=== PATIENT | male | born 1940 | race Caucasian/White ===

== ENCOUNTER 2017-02-08 14:30 | Inpatient (IN) | payer MEDICARE ==
[2017-02-08] VITALS (12 sets, daily range): BP systolic 166–205; BP diastolic 93–124; PULSE 93–108; RESP 8–19; TEMP 97.7; O2SAT 92–98
[~2017-02-08] VITALS: Ht 170.2 cm; Wt 79.0 kg
[2017-02-08] MEDS ORDERED: ROSU1TAB10 PO (14:47)
[2017-02-08] MEDS ORDERED: VERA1TAB10 PO (14:47)
[2017-02-08] MEDS ORDERED: RAMI5CAP PO (14:47)
[2017-02-08] MEDS ORDERED: ALLO300T2 PO (14:47)
[2017-02-08] MEDS ORDERED: SODIUM CHLOR 0.9% 1000 ML INJ 1,000 ML IV SCH ×2 (15:10→17:31)
[2017-02-08] MEDS ORDERED: SODIUM CHLORIDE 0.9% FLUSH 10 ML FLUSH IV FLUSH PRN ×2 (15:15→19:15)
[2017-02-08] MEDS ORDERED: ONDANSETRON HCL 4 MG/2 ML VIAL IVP ONE (15:15)
[2017-02-08] MEDS ORDERED: MORPHINE SULFATE 4 MG/ML INJ IV PUSH ONE (15:15)
--- NOTE | 2017-02-08 15:18 | PD ---
HPI . Abdominal pain Chief Complaint: Abdominal Pain Time Seen by Provider: 15:10 Travel History International Travel<30 days: No Contact w/Intl Traveler<30days: No Traveled to known affect area: No History of Present Illness HPI Patient presents with abdominal pain and bloating started last night. He describes crampy abdominal pain which he rates as 9/10. He states that he has had this on several previous occasions and that it is due to a small bowel obstruction. He reports abdominal bloating. He is nauseous but has not vomited. He has had a previous fundoplication and states that he cannot vomit. He reports that his last bowel movement was last night and his last flatus was last night. His reports that his previous bowel obstructions have been treated poorly with bowel rest and IV fluids. She states that they have never placed an NG tube. All of his previous treatments for SBO have been at an outside hospital. PFSH Past Medical History Cardiac Catheterization: Yes Cardiovascular Problems: Yes (CAD, HTN, CHOLESTEROL) High Cholesterol: Yes Gout: Yes Hypertension: Yes Respiratory: Yes (CHRONIC ATELECTASIS) Tetanus Vaccination: Unknown Influenza Vaccination: Yes Past Surgical History Eye Surgery: Yes (CATARACT, VITRIOUS DETATCHMENT) Tonsillectomy: Yes Other Surgery: Yes (GASTROPLASTY,HERNIA REMOVAL, VASECTOMY, L. ROTATOR SX) Social History Alcohol Use: Yes (SOCIALLY) Tobacco Use: No Substance Use: No Allergies-Medications (Allergen,Severity, Reaction): Coded Allergies: Adhesives (Verified Allergy, Intermediate, BRIGHT RED SKIN, 02/08/17) Iodine (Verified Allergy, Intermediate, RED/DRY SKIN ALL OVER, 02/08/17) Lidocaine (Verified Allergy, Intermediate, VASOVAGAL RESPONSE, 02/08/17) Reported Meds & Prescriptions Reported Meds & Active Scripts Active Reported Rosuvastatin (Rosuvastatin Calcium) 40 Mg Tab 40 Mg PO HS Allopurinol 300 Mg Tab 300 Mg PO HS Ramipril 5 Mg Cap 5 Mg PO HS Verapamil ER (Verapamil HCl) 180 Mg Tab 180 Mg PO HS Review of Systems Except as stated in HPI: all other systems reviewed are Neg General / Constitutional: No: Fever, Chills Gastrointestinal: Positive: Nausea, Abdominal Pain, No: Vomiting, Diarrhea Physical Exam Narrative GENERAL: Patient appears pretty uncomfortable. SKIN: Warm and dry. HEAD: Atraumatic. Normocephalic. EYES: Pupils equal and round. Extraocular movements are intact. ENT: No nasal bleeding or discharge. Mucous membranes pink and moist. NECK: Trachea midline. Neck is supple. CARDIOVASCULAR: Regular rate and rhythm. Heart sounds are normal. RESPIRATORY: No accessory muscle use. Lungs are clear with good air movement throughout. GASTROINTESTINAL: Abdomen is distended and tense. Bowel sounds are present. He is diffusely tender. MUSCULOSKELETAL: No obvious deformities. No edema. NEUROLOGICAL: Awake and alert. No obvious cranial nerve deficits. Motor grossly within normal limits. Normal speech. PSYCHIATRIC: Appropriate mood and affect; insight and judgment normal. Data Data Last Documented VS Vital Signs Date Time Temp Pulse Resp B/P Pulse Ox O2 Delivery O2 Flow Rate FiO2 02/08/17 15:15 16 97 Room Air 02/08/17 14:38 97.7 108 194/124 Orders Complete Blood Count With Diff (02/08/17 15:10) Comprehensive Metabolic Panel (02/08/17 15:10) Lipase (02/08/17 15:10) Lactic Acid (02/08/17 15:10) Urinalysis - C+S If Indicated (02/08/17 15:10) Iv Access Insert/Monitor (02/08/17 15:10) Ecg Monitoring (02/08/17 15:10) Oximetry (02/08/17 15:10) Morphine Inj (Morphine Inj) (02/08/17 15:15) Ondansetron Inj (Zofran Inj) (02/08/17 15:15) Sodium Chlor 0.9% 1000 Ml Inj (Ns 1000 M (02/08/17 15:10) Sodium Chloride 0.9% Flush (Ns Flush) (02/08/17 15:15) Electrocardiogram (02/08/17 15:10) Ct Abd/Pel W/O Iv Contrast (02/08/17 15:10) MDM Medical Decision Making Medical Screen Exam Complete: Yes Emergency Medical Condition: Yes Medical Record Reviewed: Yes Differential Diagnosis Differential diagnosis of abdominal pain includes but is not limited to gastritis, pancreatitis, hepatitis, gastroenteritis, gallbladder disease, constipation, urinary retention, UTI, peptic ulcer disease, diverticulitis or appendicitis Narrative Course Patient presents complaining with abdominal pain and bloating. He states that his symptoms are similar to previous symptoms that he has had associated with SBO. I have ordered IV fluids and IV analgesics and anti-emetics. Care signed out to the oncoming provider at 16:00. Diagnosis Primary Impression: abdominal pain Sarah Morales MD Feb 08, 2017 15:18
[2017-02-08 15:43] LABS: BASOPHIL # 0.6 TH/MM3 (0-0.2); BASOPHIL % 3.6 % (0.0-2.0); HEMATOCRIT 53.6 % (39.0-51.0); LYMPH % 4.9 % (9.0-44.0); LYMPHOCYTE # 0.8 TH/MM3 (1.0-4.8); MEAN CELL VOLUME 96.5 FL (80.0-100.0); MEAN CORPUSCULAR HEMOGLOBIN 31.8 PG (27.0-34.0); MONO % 2.3 % (0.0-8.0); NEUT % 89.2 % (16.0-70.0); PLATELET COUNT 158 TH/MM3 (150-450); RED BLOOD COUNT 5.56 MIL/MM3 (4.50-5.90); RED CELL DISTRIBUTION WIDTH 13.5 % (11.6-17.2); WHITE BLOOD COUNT 15.8 TH/MM3 (4.0-11.0)
[2017-02-08 15:52] LABS: CHLORIDE 106 MEQ/L (98-107); POTASSIUM 3.9 MEQ/L (3.5-5.1); SODIUM (NA) 142 MEQ/L (136-145)
[2017-02-08 15:56] LABS: ANION GAP 13 MEQ/L (5-15); BICARBONATE 22.7 MEQ/L (21.0-32.0); BLOOD UREA NITROGEN 11 MG/DL (7-18)
[2017-02-08 15:59] LABS: ALT (GPT) 74 U/L (12-78); AST (GOT) 25 U/L (15-37); GLOMERULAR FILTRATION RATE 65 ML/MIN (>89)
[2017-02-08 16:00] LABS: HEMO FLAGS AUTO DIFF
[2017-02-08 16:01] LABS: TOTAL BILIRUBIN ADULT 1.9 MG/DL (0.2-1.0)
[2017-02-08 16:02] LABS: ALKALINE PHOSPHATASE 66 U/L (45-117)
[2017-02-08 16:17] LABS: SCAN/DIFF AUTO DIFF CONFIRMED
--- NOTE | 2017-02-08 16:29 | RADHPO ---
EXAM DATE/TIME: 02/08/2017 16:17 [facility] COMPARISON: No previous studies available for comparison. INDICATIONS : Shortness of breath. MEDICAL HISTORY : None. SURGICAL HISTORY : None. ENCOUNTER: Initial ACUITY: 1 day PAIN SCORE: 0/10 LOCATION: Bilateral chest FINDINGS: There is moderate gaseous distention throughout the stomach. There is cardiomegaly with mild interst itial edema. There is no alveolar consolidation, pleural effusion or pneumothorax. CONCLUSION: 1. Moderate gaseous distention. 2. Cardiomegaly with mild interstitial edema. Emery Zavala MD FACR on February 08, 2017 at 16:24 Board Certified Radiologist. This report was verified electronically.
--- NOTE | 2017-02-08 16:41 | RADHPO ---
EXAM DATE/TIME: 02/08/2017 15:41 [facility] COMPARISON: CHEST SINGLE AP, February 08, 2017, 16:17. INDICATIONS : Abdominal pain with nausea and constipation. ORAL CONTRAST: No oral contrast ingested. RADIATION DOSE: 15.34 CTDIvol (mGy) MEDICAL HISTORY : Hernia. Hypertension. SURGICAL HISTORY : Gastroplasty, hernia removal. ENCOUNTER: Initial ACUITY: 1 day PAIN SCALE: 5/10 LOCATION: abdomen TECHNIQUE: Volumetric scanning of the abdomen and pelvis was performed. Using automated exposure control and ad justment of the mA and/or kV according to patient size, radiation dose was kept as low as reasonably achievable to obtain optimal diagnostic quality images. FINDINGS: There is an abnormal bowel gas pattern. The stomach is markedly distended with only a small air-flui d level. There is a moderate size hiatus hernia with air-fluid level. In the region of the duodenal bulb or 2nd portion of the duodenum, there is a narrowing of the lumen to less than 5 mm, this is be st seen on image #35. The duodenum distal to these narrowing is also markedly dilated as are proxima l and mid loops of small bowel. Small bowel loops are dilated up to 4.5 cm and there are some air-fl uid levels seen within the small bowel. The distal small bowel, however, is not distended. The no m ass or induration seen at the transition zone between dilated and nondilated small bowel, which is ap proximately at image #55 in the right lower quadrant. The liver, gallbladder, spleen, kidneys, pancreas, aorta, bladder, and in the region are unremarkable . No evidence of free fluid. No evidence of free intraperitoneal gas. The visualized lower lungs a re clear. Wide windows for bony detail demonstrate moderate degenerative changes in the posterior el ements of the lumbar spine. CONCLUSION: Abnormal appearance to the stomach and proximal two thirds of the small bowel with marked gaseous dis tention. Possible stricture in the proximal duodenum and a possible transition zone in the right low er quadrant in the distal small bowel. There is also a moderate size hiatus hernia with air-fluid le herson. There is no mass seen at the transition zone and no evidence of free fluid or free intraperiton eal gas. The patient may benefit from a NG tube. Vahid Serrano MD on February 08, 2017 at 16:32 Board Certified Radiologist. This report was verified electronically.
--- NOTE | 2017-02-08 17:29 | RADHPO ---
EXAM DATE/TIME: 02/08/2017 17:13 [facility] COMPARISON: CT ABDOMEN & PELVIS W/O CONTRAST, February 08, 2017, 15:41. CHEST SINGLE AP, February 08, 2017, 16:17. INDICATIONS : Post NG tube placement. MEDICAL HISTORY : None. SURGICAL HISTORY : None. ENCOUNTER: Subsequent ACUITY: 1 day PAIN SCORE: 5/10 LOCATION: Bilateral lower chest FINDINGS: Interval placement of a gastric tube. The tip is seen below the level of the diaphragm in the left e pigastric region suggesting that it does cross into the stomach. However, there is a moderate-sized hiatus hernia and cannot exclude that the tube is coiled in the hiatus hernia. The side-port of the tube is not discernible. CONCLUSION: A gastric tube tip is either near the fundus of the stomach or in the hiatus hernia. Side-port locat ion cannot be determined on this film. Vahid Serrano MD on February 08, 2017 at 17:24 Board Certified Radiologist. This report was verified electronically.
[2017-02-08] MEDS ORDERED: PANTOPRAZOLE SODIUM 40 MG VIAL IV PUSH ONE (17:45)
[2017-02-08] MEDS ORDERED: DIATRIZOATE MEGLUM/DIATRIZOATE SOD 120 ML BTL (for RAD DIAG) NG ONE (17:55)
--- NOTE | 2017-02-08 18:13 | PD ---
Physical Exam Narrative The patient was initially evaluated by the previous provider and sent out to me at the beginning of my shift pending labs, imaging studies, and disposition. See her note for further details. Briefly this is a 76-year-old male who is from [place], here on vacation for 2 months, history of Chandler fundoplication 3 years ago with 3 episodes of subsequent SBO, here for evaluation of similar symptoms to prior SBO. Patient reports abdominal distention/discomfort, feeling nauseous, burping. Prior to this he had loose bowel movements and a lot of gas. States that he has not had a bowel movement since yesterday evening when his symptoms started. He reports that he has had 6 episodes of SBO since his Chandler fundoplication, and each time he was admitted. Symptoms resolved in the past with bowel alone. On physical exam the patient's abdomen is distended. There is mild diffuse tenderness. No peritoneal signs. He is resting comfortably. Initial vital signs show heart rate 108, blood pressure 194/124, pulse ox 94% on room air, oral temp of 97.7F. The patient is not displaying any signs or symptoms of hypertensive crisis. CBC shows WBC 15.8, hemoglobin 17.7, hematocrit 53.6, platelets 158, neutrophils 89.2%. CMP is essentially unremarkable. Lipase is 512. Lipase is 2.1. CT abdomen pelvis: CONCLUSION: Abnormal appearance to the stomach and proximal two thirds of the small bowel with marked gaseous distention. Possible stricture in the proximal duodenum and a possible transition zone in the right lower quadrant in the distal small bowel. There is also a moderate size hiatus hernia with air-fluid level. There is no mass seen at the transition zone and no evidence of free fluid or free intraperitoneal gas. The patient may benefit from a NG tube. NG tube was placed carefully by me and placed to low intermittent suction. Shortly after the NG tube was placed, the patient experienced moderate relief of abdominal distention/discomfort. Chest x-ray: Cardiomegaly with mild interstitial edema. Gaseous distention. Repeat chest x-ray after NG tube placement shows probable NG tube tip in stomach. KUB with Gastrografin was ordered subsequently to confirm NG tube placement. Abdominal x-ray with Gastrografin: CONCLUSION: Gastrografin obscures the location of the NG tube. Given the pattern of the Gastrografin I suspect the NG tube is coiled within the lower thoracic esophagus or hiatal hernia. NG tube placed to low intermittent suction with only a small amount of stomach contents aspirated. Patient had significant clinical improvement after NG tube placement with significant improvement in abdominal distention as well as discomfort. Call was placed to on-call Dr. surgeon Dr. Aparicio, however his call service tells me that he is in surgery and is unable to be reached at this time. Clinically the patient looks very well. His abdomen is nontender, without peritoneal signs. Case discussed with hospitalist Dr. Edwards. The patient will be transferred to the main hospital for admission for further treatment and evaluation, surgical, and likely GI consultation. Data Data Last Documented VS Vital Signs Date Time Temp Pulse Resp B/P Pulse Ox O2 Delivery O2 Flow Rate FiO2 02/08/17 19:03 97 18 166/93 92 Room Air 02/08/17 14:38 97.7 Orders Complete Blood Count With Diff (02/08/17 15:10) Comprehensive Metabolic Panel (02/08/17 15:10) Lipase (02/08/17 15:10) Lactic Acid (02/08/17 15:10) Urinalysis - C+S If Indicated (02/08/17 15:10) Iv Access Insert/Monitor (02/08/17 15:10) Ecg Monitoring (02/08/17 15:10) Oximetry (02/08/17 15:10) Morphine Inj (Morphine Inj) (02/08/17 15:15) Ondansetron Inj (Zofran Inj) (02/08/17 15:15) Sodium Chlor 0.9% 1000 Ml Inj (Ns 1000 M (02/08/17 15:10) Sodium Chloride 0.9% Flush (Ns Flush) (02/08/17 15:15) Electrocardiogram (02/08/17 15:10) Ct Abd/Pel W/O Iv Contrast (02/08/17 15:10) Chest, Single Ap (02/08/17 ) Chest, Single Ap (02/08/17 ) Pantoprazole Inj (Protonix Inj) (02/08/17 17:45) Sodium Chlor 0.9% 1000 Ml Inj (Ns 1000 M (02/08/17 17:31) Lactic Acid (02/08/17 17:32) Abdomen, Single View (02/08/17 ) Diatrizoate Liq (Md Nelson Stevens) (02/08/17 17:55) Admit Order (Ed Use Only) (02/08/17 19:08) Consult General Surgery (02/08/17 ) Labs Laboratory Tests Test 02/08/17 02/08/17 15:30 18:00 White Blood Count 15.8 TH/MM3 Red Blood Count 5.56 MIL/MM3 Hemoglobin 17.7 GM/DL Hematocrit 53.6 % Mean Corpuscular Volume 96.5 FL Mean Corpuscular Hemoglobin 31.8 PG Mean Corpuscular Hemoglobin 33.0 % Concent Red Cell Distribution Width 13.5 % Platelet Count 158 TH/MM3 Mean Platelet Volume 8.5 FL Neutrophils (%) (Auto) 89.2 % Lymphocytes (%) (Auto) 4.9 % Monocytes (%) (Auto) 2.3 % Eosinophils (%) (Auto) 0.0 % Basophils (%) (Auto) 3.6 % Neutrophils # (Auto) 14.0 TH/MM3 Lymphocytes # (Auto) 0.8 TH/MM3 Monocytes # (Auto) 0.4 TH/MM3 Eosinophils # (Auto) 0.0 TH/MM3 Basophils # (Auto) 0.6 TH/MM3 CBC Comment AUTO DIFF Differential Comment AUTO DIFF CONFIRMED Sodium Level 142 MEQ/L Potassium Level 3.9 MEQ/L Chloride Level 106 MEQ/L Carbon Dioxide Level 22.7 MEQ/L Anion Gap 13 MEQ/L Blood Urea Nitrogen 11 MG/DL Creatinine 1.10 MG/DL Estimat Glomerular Filtration 65 ML/MIN Rate Random Glucose 154 MG/DL Lactic Acid Level 2.1 mmol/L 1.7 mmol/L Calcium Level 9.9 MG/DL Total Bilirubin 1.9 MG/DL Aspartate Amino Transf 25 U/L (AST/SGOT) Alanine Aminotransferase 74 U/L (ALT/SGPT) Alkaline Phosphatase 66 U/L Total Protein 7.8 GM/DL Albumin 4.2 GM/DL Lipase 512 U/L [facility] Supervised Visit with KENYON: No Procedures Procedure Narrative NG tube placement: Small amount of lubricant was placed on the tip of a 16 Czech Brown sump. NG tube was slowly inserted into the left nostril into the posterior pharynx. Patient then swallowed water, lying passage of NG tube into esophagus. Placement confirmed with aspiration of gastric contents and chest x-ray. NG tube placed to low intermittent suction. Diagnosis Primary Impression: abdominal pain Additional Impressions: Gastric distention SBO (small bowel obstruction) Admitting Information Admitting Physician Requests: Admit Brice Velasquez MD Feb 08, 2017 18:13 Admitting Information Admitting Physician Requests: Admit Brice Velasquez MD Feb 08, 2017 18:13
--- NOTE | 2017-02-08 18:34 | RADHPO ---
EXAM DATE/TIME: 02/08/2017 17:58 [facility] COMPARISON: CHEST SINGLE AP, February 08, 2017, 17:13. INDICATIONS : Confirm NG tube placement. MEDICAL HISTORY : None. SURGICAL HISTORY : None. ENCOUNTER: Subsequent ACUITY: 1 day PAIN SCORE: 5/10 LOCATION: Bilateral abdomen FINDINGS: A single portable supine view of the abdomen shows Gastrografin opacifying the lower thoracic esophag us, hiatal hernia, and fundus of the stomach. This obscures the nasogastric tube. The stomach is part ially gas filled as well. Gas-filled loops of mildly distended large and small bowel are partially se en. CONCLUSION: Gastrografin obscures the location of the NG tube. Given the pattern of the Gastrografin I suspect th e NG tube is coiled within the lower thoracic esophagus or hiatal hernia. Vahid Fraser Jr., MD on February 08, 2017 at 18:30 Board Certified Radiologist. This report was verified electronically.
[2017-02-08] MEDS: SODIUM CHLOR 0.9% 1000 ML INJ 1,000 ML IV SCH (19:05)
[2017-02-08] MEDS ORDERED: METOCLOPRAMIDE HCL 10 MG/2 ML VIAL IV PUSH PRN (19:15)
[2017-02-08] MEDS ORDERED: ONDANSETRON HCL 4 MG/2 ML VIAL IVP PRN (19:15)
[2017-02-08] MEDS ORDERED: MORPHINE SULFATE 4 MG/ML INJ IV PRN ×3 (19:15)
[2017-02-08] MEDS ORDERED: hydrALAZINE HCL 20 MG/ML VIAL IV PRN (19:15)
[2017-02-08] MEDS ORDERED: NALOXONE HCL 0.4 MG/ML AMP IV PRN (19:15)
[2017-02-08 19:21] LABS: BLOOD, URINE TRACE (NEG); GLUCOSE,URINE NEG (NEG); KETONE, URINE 15 mg/dL (NEG); NITRITE,URINE NEG (NEG); PH, URINE 6.5 (5.0-8.5)
[2017-02-08 19:25] LABS: URINE COLOR YELLOW (YELLW/STRAW)
[2017-02-08 19:26] LABS: COMMENT (UR) CULT NOT INDICATED; CULTURE IF INDICATED CULT NOT INDICATED; SQUAMOUS EPITHELIAL CELL URINE 0-5 /hpf (0-5); WBC, URINE 0-2 /hpf (0-5)
[2017-02-08] MEDS: SODIUM CHLORIDE 0.9% FLUSH 10 ML FLUSH IV FLUSH SCH (21:00)
[2017-02-09] VITALS (9 sets, daily range): BP systolic 132–187; BP diastolic 76–95; PULSE 82–106; RESP 18–20; TEMP 96.7–99.3; O2SAT 93–94
[2017-02-09] MEDS: SODIUM CHLOR 0.9% 1000 ML INJ 1,000 ML IV SCH (00:50)
[2017-02-09] MEDS ORDERED: ACETAMINOPHEN 650 MG SUPP RECTAL PRN (02:00)
[2017-02-09] MEDS: ENALAPRILAT 1.25 MG/ML VIAL IV PRN ×2 (02:04→08:56)
[2017-02-09] MEDS ORDERED: ENALAPRILAT 1.25 MG/ML VIAL IV PUSH ONE (04:00)
[2017-02-09] MEDS: PANTOPRAZOLE SODIUM 40 MG VIAL IV PUSH SCH (06:31)
[2017-02-09 06:49] LABS: AUTOMATED NEUTROPHIL # 12.5 TH/MM3 (1.8-7.7); BASOPHIL # 0.1 TH/MM3 (0-0.2); BASOPHIL % 0.5 % (0.0-2.0); EOSINOPHIL % 0.1 % (0.0-4.0); HEMATOCRIT 47.4 % (39.0-51.0); HEMO FLAGS DIFF FINAL; LYMPH % 8.3 % (9.0-44.0); LYMPHOCYTE # 1.2 TH/MM3 (1.0-4.8); MEAN CELL VOLUME 96.6 FL (80.0-100.0); MEAN CORPUSCULAR HGB CONC 34.1 % (32.0-36.0); MONO % 4.6 % (0.0-8.0); NEUT % 86.5 % (16.0-70.0); PLATELET COUNT 154 TH/MM3 (150-450); RED CELL DISTRIBUTION WIDTH 14.1 % (11.6-17.2); WHITE BLOOD COUNT 14.5 TH/MM3 (4.0-11.0)
[2017-02-09 07:07] LABS: BICARBONATE 24.4 MEQ/L (21.0-32.0); POTASSIUM 4.1 MEQ/L (3.5-5.1)
[2017-02-09] MEDS: SODIUM CHLORIDE 0.9% FLUSH 10 ML FLUSH IV FLUSH SCH ×2 (09:00→21:00)
--- NOTE | 2017-02-09 09:00 | HHI.HP ---
[facility]Staff Admission Diagnosis abdominal pain, gastric distention, SBO Diagnoses: (1) SBO (small bowel obstruction) Diagnosis: Principal Chief Complaint: abdominal pain Travel History International Travel<30 Days: No Contact w/Intl Traveler <30 Da: No Traveled to Known Affected Are: No History of Present Illness patient is a 76 y/o male with history of Chandler Fundoplication and small bowel obstruction few years ago presented to ER with abdominal pain. he says that the pain started few days ago. the pain initially started on left flank but gradually shifted to the periumbilical area.the pain is colicky in nature and moderate in intensity. the pain was associated with nausea but with no emesis. he had a small bowel movement yesterday. he denies fever, chills. Review of Systems Constitutional: DENIES: Fever, Weight loss, Chills, Night Sweats Eyes: DENIES: Blurred vision, Diplopia, Vision loss, Double Vision Ears, nose, mouth, throat: DENIES: Tinnitus, Vertigo, Throat pain, Epistaxis Respiratory: DENIES: Apneas, Cough, Snoring, Wheezing, Hemoptysis, Sputum production, Shortness of breath Cardiovascular: DENIES: Chest pain, Palpitations, Syncope, Dyspnea on Exertion , PND, Lower Extremity Edema, Orthopnea, Claudication Gastrointestinal: COMPLAINS OF: Abdominal pain, Nausea, DENIES: Black stools, Bloody stools, Constipation, Diarrhea, Vomiting, Difficulty Swallowing, Anorexia Genitourinary: DENIES: Urinary frequency, Urgency, Hematuria, Dysuria Musculoskeletal: DENIES: Joint pain, Muscle aches, Stiffness, Joint Swelling Integumentary: DENIES: Rash Neurologic: DENIES: Abnormal gait, Headache, Localized weakness, Paresthesias, Seizures, Speech Problems, Tremor, Poor Balance Psychiatric: DENIES: Anxiety, Confusion, Mood changes, Depression, Hallucinations, Agitation, Suicidal Ideation, Homicidal Ideation, Delusions Past Family Social History Past Medical History small bowel obstruction hypertension dyslipidemia gout Past Surgical History Chandler Fundoplication rotator cuff surgery Reported Medications Rosuvastatin (Rosuvastatin Calcium) 40 Mg Tab 40 Mg PO HS Allopurinol 300 Mg Tab 300 Mg PO HS Ramipril 5 Mg Cap 5 Mg PO HS Verapamil ER (Verapamil HCl) 180 Mg Tab 180 Mg PO HS Allergies: Coded Allergies: Adhesives (Verified Allergy, Intermediate, BRIGHT RED SKIN, 02/08/17) Iodine (Verified Allergy, Intermediate, RED/DRY SKIN ALL OVER, 02/08/17) Lidocaine (Verified Allergy, Intermediate, VASOVAGAL RESPONSE, 02/08/17) Active Ordered Medications Current Medications Morphine Sulfate (Morphine Inj) 4 mg ONCE ONCE IV PUSH Last administered on 15:35; Start 02/08/17 at 15:15; Stop 02/08/17 at 15:16; Status DC Ondansetron HCl 4 mg 4 mg ONCE ONCE IVP Last administered on 02/08/17 15:33; Start 02/08/17 at 15:15; Stop 02/08/17 at 15:16; Status DC Sodium Chloride (NS 1000 ml Inj) 1,000 ml @ 1,000 mls/hr Q1H IV Last administered on 02/08/17 15:33; Start 02/08/17 at 15:10; Stop 02/08/17 at 16:09 ; Status DC Sodium Chloride (NS Flush) 2 ml UNSCH PRN IV FLUSH FLUSH AFTER USING IV ACCESS ; Start 02/08/17 at 15:15; Stop 02/09/17 at 01:57; Status DC Pantoprazole Sodium 40 mg 40 mg ONCE ONCE IV PUSH Last administered on 18:22; Start 02/08/17 at 17:45; Stop 02/08/17 at 17:46; Status DC Sodium Chloride (NS 1000 ml Inj) 1,000 ml @ 125 mls/hr Q8H IV Last administered on 02/08/17 18:22; Start 02/08/17 at 17:31; Stop 02/09/17 at 01:30 ; Status DC Diatrizoate Meglum/ Diatrizoate Sod ( Gastroview Liq) 10 ml STK-MED ONCE NG ; Start 02/08/17 at 17:55; Stop 02/08/17 at 18:55; Status DC Enalaprilat (Vasotec Inj) 1.25 mg Q6H PRN IV SBP> OR = 160, DBP> OR = 95 Last administered on 02/09/17 02:04; Start 02/08/17 at 19:15 Hydralazine HCl (Apresoline Inj) 10 mg Q6H PRN IV SBP> OR = 180, DBP> OR = 100 Last administered on 02/08/17 23:43; Start 02/08/17 at 19:15 Pantoprazole Sodium 40 mg 40 mg Q24H IV PUSH Last administered on 02/09/17 06: 31; Start 02/09/17 at 07:00 Sodium Chloride (NS 1000 ml Inj) 1,000 ml @ 60 mls/hr [id number] IV Last administered on 02/09/17 00:50; Start 02/08/17 at 19:05 Sodium Chloride (NS Flush) 2 ml UNSCH PRN IV FLUSH FLUSH AFTER USING IV ACCESS ; Start 02/08/17 at 19:15 Sodium Chloride (NS Flush) 2 ml BID IV FLUSH Last administered on 02/08/17 21: 00; Start 02/08/17 at 21:00 Ondansetron HCl (Zofran Inj) 4 mg Q6H PRN IVP NAUSEA OR VOMITING; Start at 19:15 Metoclopramide HCl (Reglan Inj) 5 mg Q6H PRN IV PUSH NAUSEA OR VOMITING; Start 02/08/17 at 19:15 Morphine Sulfate (Morphine Inj) 1 mg Q3H PRN IV Pain 3-5; if unable to take PO ; Start 02/08/17 at 19:15 Morphine Sulfate (Morphine Inj) 2 mg Q3H PRN IV Pain 6-10;if unable to take PO ; Start 02/08/17 at 19:15 Morphine Sulfate (Morphine Inj) 2 mg Q3H PRN IV BREAKTHROUGH PAIN; Start at 19:15 Naloxone HCl (Narcan Inj) 0.4 mg UNSCH PRN IV SEE LABEL COMMENTS; Start at 19:15 Acetaminophen (Tylenol Supp) 650 mg ONCE PRN RECTAL headache; Start 02/09/17 at 02:00; Stop 02/09/17 at 07:30; Status DC Enalaprilat (Vasotec Inj) 1.25 mg ONCE ONCE IV PUSH Last administered on 02/09 04:23; Start 02/09/17 at 04:00; Stop 02/09/17 at 04:01; Status DC Family History not relevant to this presentation. Social History doesn't smoke. drinks occasionally. Physical Exam Vital Signs Vital Signs Date Time Temp Pulse Resp B/P Pulse Ox O2 Delivery O2 Flow Rate FiO2 02/09/17 08:14 97.3 82 18 152/83 94 02/09/17 06:42 89 153/78 02/09/17 04:48 98.2 93 20 187/95 93 02/09/17 03:00 106 02/09/17 02:00 97.6 93 20 175/94 94 02/08/17 23:47 100 18 198/105 94 Room Air 02/08/17 23:32 102 18 205/116 95 Room Air 02/08/17 23:28 93 18 191/106 93 Room Air 02/08/17 22:38 94 16 181/97 94 Room Air 02/08/17 20:45 105 18 175/96 94 Room Air 02/08/17 19:03 97 18 166/93 92 Room Air 02/08/17 17:40 104 16 193/106 Room Air 02/08/17 17:10 100 16 205/111 97 Room Air 02/08/17 16:40 98 16 199/113 98 Room Air 02/08/17 16:05 16 02/08/17 15:53 204/104 202/103 02/08/17 15:15 16 97 Room Air 02/08/17 14:38 97.7 108 19 194/124 94 Physical Exam GENERAL: This is a well-nourished, well-developed patient, in no apparent distress. SKIN: No rashes, ecchymoses or lesions. Cool and dry. HEAD: Atraumatic. Normocephalic. No temporal or scalp tenderness. EYES: Pupils equal round and reactive. Extraocular motions intact. No scleral icterus. No injection or drainage. ENT: Nose without bleeding, purulent drainage or septal hematoma. Throat without erythema, tonsillar hypertrophy or exudate. Uvula midline. Airway patent. NECK: Trachea midline. No JVD or lymphadenopathy. Supple, nontender, no meningeal signs. CARDIOVASCULAR: Regular rate and rhythm without murmurs, gallops, or rubs. RESPIRATORY: Clear to auscultation. Breath sounds equal bilaterally. No wheezes , rales, or rhonchi. GASTROINTESTINAL: Abdomen soft, non-tender, nondistended. No hepato-splenomegaly , or palpable masses. No guarding. MUSCULOSKELETAL: Extremities without clubbing, cyanosis, or edema. No joint tenderness, effusion, or edema noted. No calf tenderness. Negative Homans sign bilaterally. NEUROLOGICAL: Awake and alert. Cranial nerves II through XII intact. Motor and sensory grossly within normal limits. Five out of 5 muscle strength in all muscle groups. Normal speech. Laboratory Laboratory Tests Test 02/08/17 02/08/17 02/08/17 02/09/17 15:30 18:00 19:15 06:22 White Blood Count 15.8 14.5 Red Blood Count 5.56 4.90 Hemoglobin 17.7 16.2 Hematocrit 53.6 47.4 Mean Corpuscular Volume 96.5 96.6 Mean Corpuscular Hemoglobin 31.8 33.0 Mean Corpuscular Hemoglobin 33.0 34.1 Concent Red Cell Distribution Width 13.5 14.1 Platelet Count 158 154 Mean Platelet Volume 8.5 9.1 Neutrophils (%) (Auto) 89.2 86.5 Lymphocytes (%) (Auto) 4.9 8.3 Monocytes (%) (Auto) 2.3 4.6 Eosinophils (%) (Auto) 0.0 0.1 Basophils (%) (Auto) 3.6 0.5 Neutrophils # (Auto) 14.0 12.5 Lymphocytes # (Auto) 0.8 1.2 Monocytes # (Auto) 0.4 0.7 Eosinophils # (Auto) 0.0 0.0 Basophils # (Auto) 0.6 0.1 CBC Comment AUTO DIFF DIFF FINAL Differential Comment AUTO DIFF CONFIRMED Sodium Level 142 140 Potassium Level 3.9 4.1 Chloride Level 106 107 Carbon Dioxide Level 22.7 24.4 Anion Gap 13 9 Blood Urea Nitrogen 11 9 Creatinine 1.10 0.90 Estimat Glomerular Filtration 65 82 Rate Random Glucose 154 98 Lactic Acid Level 2.1 1.7 Calcium Level 9.9 8.9 Total Bilirubin 1.9 Aspartate Amino Transf 25 (AST/SGOT) Alanine Aminotransferase 74 (ALT/SGPT) Alkaline Phosphatase 66 Total Protein 7.8 Albumin 4.2 Lipase 512 147 Urine Color YELLOW Urine Turbidity CLEAR Urine pH 6.5 Urine Specific [place] 1.015 Urine Protein 30 Urine Glucose (UA) NEG Urine Ketones 15 Urine Occult Blood TRACE Urine Nitrite NEG Urine Bilirubin NEG Urine Leukocyte Esterase NEG Urine WBC 0-2 Urine Squamous Epithelial 0-5 Cells Microscopic Urinalysis Comment CULT NOT INDICATED Date/Time Procedure Status Source Growth 02/09/17 04:13 Gastric Occult Blood - Final Complete Gastric GASTROCCULT POSITIVE Result Diagram: 02/09/1762102/09/17 06 Imaging Last Impressions Abdomen/Pelvis CT 02/08/17 1510 Signed Impressions: Service Date/Time: Wednesday, February 08, 2017 15:41 - CONCLUSION: Abnormal appearance to the stomach and proximal two thirds of the small bowel with marked gaseous distention. Possible stricture in the proximal duodenum and a possible transition zone in the right lower quadrant in the distal small bowel. There is also a moderate size hiatus hernia with air-fluid level. There is no mass seen at the transition zone and no evidence of free fluid or free intraperitoneal gas. The patient may benefit from a NG tube. Vahid Serrano MD Chest X-Ray 02/08/17 0000 Signed Impressions: Service Date/Time: Wednesday, February 08, 2017 17:13 - CONCLUSION: A gastric tube tip is either near the fundus of the stomach or in the hiatus hernia. Side-port location cannot be determined on this film. Vahid Serrano MD Abdomen X-Ray 02/08/17 0000 Signed Impressions: Service Date/Time: Wednesday, February 08, 2017 17:58 - CONCLUSION: Gastrografin obscures the location of the NG tube. Given the pattern of the Gastrografin I suspect the NG tube is coiled within the lower thoracic esophagus or hiatal hernia. Vahid Fraser Jr., MD Assessment and Plan Assessment and Plan A/P - small bowel obstruction keep NPO and continue with IV fluid, pain control and antiemetics- NG tube in place. surgery and GI consulted. -leukocytosis- likely stress induced- will monitor -hypertension; home meds on hold- on IV vasotec and hydralazine as needed -dyslipidemia/ gout; resume home meds when able to take po -DVT prophylaxis with SCD's Discussed Condition With the patient and RN. Physician Certification 2 Midnight Certification Type: Admission for Inpatient Services Order for Inpatient Services The services are ordered in accordance with Medicare regulations or non- Medicare payer requirements, as applicable. In the case of services not specified as inpatient-only, they are appropriately provided as inpatient services in accordance with the 2-midnight benchmark. Estimated LOS (days): 2 days is the estimated time the patient will need to remain in the hospital, assuming treatment plan goals are met and no additional complications. Post-Hospital Plan: Home Vipin Caraballo MD Feb 09, 2017 09:00
--- NOTE | 2017-02-09 10:01 | PD.CONS ---
HPI History of Present Illness This is a 76 year old male who presented to the emergency room for evaluation of nausea with abdominal pain and bloating. She resides in [place] and visits this area for about 6 weeks per year. He underwent a Wing fundoplication at the [facility] about 4-5 years ago. His postoperative course was complicated by the development of 2 ileus. He also reports that during the first year he had 3 small bowel obstructions. He reports that all of these did resolve with conservative treatment with IV fluids and bowel rest. He reports that he last had a colonoscopy about 3-1/2 years ago and had multiple polyps removed. He states that he hasn't had any further issues with bowel obstruction since that time. He reports that on Monday evening, he began feeling fatigued and having intermittent nausea. [place] the airport to [place] his daughter and had to frequently sit down to rest. On Monday, he reports that he had 2 explosive liquid bowel movements. He then developed nausea without vomiting and severe intermittent stabbing pain in his mid abdominal area with no radiation that would come and go in waves. This was aggravated by any by mouth intake. He recognized the symptoms from his prior small bowel obstructions and therefore came to the ER for further evaluation. He denies any fevers or chills. CT scan abdomen and pelvis per indices 02/08/17 ) revealed abnormal appearance to the stomach and proximal two thirds of the small bowel with markedly gaseous distention. Possible stricture in the proximal duodenum and a possible transition zone in the right lower quadrant in the distal small bowel. There is also a moderate size hiatus hernia with air- fluid level. There is no mass seen at the transition zone and no evidence of free fluid or free intraperitoneal gas. The patient may benefit from an NG tube. NG tube was placed to low intermittent wall suction. After he arrived to the floor, he reports that he had a large bowel movement and passed a large amount of colitis. He states that his abdominal pain and bloating improved after he had this bowel movement. Today, he is feeling much better. (Bonita Clarke) PFSH Past Medical History Ileus 2 Small bowel obstruction 3, resolved with conservative treatment Hypertension Hyperlipidemia Gout Colon polyps Past Surgical History Chandler Fundoplication Rotator cuff surgery Foot surgery Colonoscopy (Bonita Clarke) Coded Allergies: Adhesives (Verified Allergy, Intermediate, BRIGHT RED SKIN, 02/08/17) Iodine (Verified Allergy, Intermediate, RED/DRY SKIN ALL OVER, 02/08/17) Lidocaine (Verified Allergy, Intermediate, VASOVAGAL RESPONSE, 02/08/17) Medications Allergies Coded Allergies Type Severity Reaction Last Updated Verified Adhesives Allergy Intermediate BRIGHT RED SKIN 02/08/17 Yes Iodine Allergy Intermediate RED/DRY SKIN ALL OVER 02/08/17 Yes Lidocaine Allergy Intermediate VASOVAGAL RESPONSE 02/08/17 Yes Active Scripts Medications Dose Route/Sig Days Date Category Rosuvastatin (Rosuvastatin Calcium) 40 Mg Tab 40 Mg PO HS 02/08/17 Reported Allopurinol 300 Mg Tab 300 Mg PO HS 02/08/17 Reported Ramipril 5 Mg Cap 5 Mg PO HS 02/08/17 Reported Verapamil ER (Verapamil HCl) 180 Mg Tab 180 Mg PO HS 02/08/17 Reported Family History Sister from colon cancer at age 60 Brother recently diagnosed with bladder cancer Mother from old age at age 96. She did have breast cancer in her 70s Social History May use of tobacco Occasional alcohol use (Bonita Clarke) Review of Systems Constitutional: COMPLAINS OF: Fatigue, DENIES: Fever, Weight loss, Chills Respiratory: DENIES: Cough Cardiovascular: DENIES: Chest pain Gastrointestinal: COMPLAINS OF: Abdominal pain, Constipation, Diarrhea, Nausea , Swelling of Abdomen, DENIES: Black stools, Bloody stools, Vomiting, Heartburn , Hematemesis Musculoskeletal: DENIES: Joint pain Hematologic/lymphatic: DENIES: Bruising Neurologic: DENIES: Headache Psychiatric: DENIES: Confusion (Bonita Clarke) GI Exam Vitals I&O Vital Signs Date Time Temp Pulse Resp B/P Pulse Ox O2 Delivery O2 Flow Rate FiO2 02/09/17 08:14 97.3 82 18 152/83 94 02/09/17 06:42 89 153/78 02/09/17 04:48 98.2 93 20 187/95 93 02/09/17 03:00 106 02/09/17 02:00 97.6 93 20 175/94 94 02/08/17 23:47 100 18 198/105 94 Room Air 02/08/17 23:32 102 18 205/116 95 Room Air 02/08/17 23:28 93 18 191/106 93 Room Air 02/08/17 22:38 94 16 181/97 94 Room Air 02/08/17 20:45 105 18 175/96 94 Room Air 02/08/17 19:03 97 18 166/93 92 Room Air 02/08/17 17:40 104 16 193/106 Room Air 02/08/17 17:10 100 16 205/111 97 Room Air 02/08/17 16:40 98 16 199/113 98 Room Air 02/08/17 16:05 16 02/08/17 15:53 204/104 202/103 02/08/17 15:15 16 97 Room Air 02/08/17 14:38 97.7 108 19 194/124 94 I/O 02/08/17 02/08/17 02/08/17 02/09/17 02/09/17 02/09/17 07:00 15:00 23:00 07:00 15:00 23:00 Intake Total 568 ml Output Total 1000 ml Balance -432 ml Intake Oral 0 ml IV Total 568 ml Output Urine Total 700 ml Gastric Drainage Total 300 ml # Bowel Movements 0 Imaging Last Impressions Abdomen/Pelvis CT 02/08/17 1510 Signed Impressions: Service Date/Time: Wednesday, February 08, 2017 15:41 - CONCLUSION: Abnormal appearance to the stomach and proximal two thirds of the small bowel with marked gaseous distention. Possible stricture in the proximal duodenum and a possible transition zone in the right lower quadrant in the distal small bowel. There is also a moderate size hiatus hernia with air-fluid level. There is no mass seen at the transition zone and no evidence of free fluid or free intraperitoneal gas. The patient may benefit from a NG tube. Vahid Serrano MD Chest X-Ray 02/08/17 0000 Signed Impressions: Service Date/Time: Wednesday, February 08, 2017 17:13 - CONCLUSION: A gastric tube tip is either near the fundus of the stomach or in the hiatus hernia. Side-port location cannot be determined on this film. Vahid Serrano MD Abdomen X-Ray 02/08/17 0000 Signed Impressions: Service Date/Time: Wednesday, February 08, 2017 17:58 - CONCLUSION: Gastrografin obscures the location of the NG tube. Given the pattern of the Gastrografin I suspect the NG tube is coiled within the lower thoracic esophagus or hiatal hernia. Vahid Fraser Jr., MD Laboratory Test 02/08/17 02/08/17 02/08/17 02/09/17 15:30 18:00 19:15 06:22 White Blood Count 15.8 TH/MM3 14.5 TH/MM3 Red Blood Count 5.56 MIL/MM3 4.90 MIL/MM3 Hemoglobin 17.7 GM/DL 16.2 GM/DL Hematocrit 53.6 % 47.4 % Mean Corpuscular Volume 96.5 FL 96.6 FL Mean Corpuscular Hemoglobin 31.8 PG 33.0 PG Mean Corpuscular Hemoglobin 33.0 % 34.1 % Concent Red Cell Distribution Width 13.5 % 14.1 % Platelet Count 158 TH/MM3 154 TH/MM3 Mean Platelet Volume 8.5 FL 9.1 FL Neutrophils (%) (Auto) 89.2 % 86.5 % Lymphocytes (%) (Auto) 4.9 % 8.3 % Monocytes (%) (Auto) 2.3 % 4.6 % Eosinophils (%) (Auto) 0.0 % 0.1 % Basophils (%) (Auto) 3.6 % 0.5 % Neutrophils # (Auto) 14.0 TH/MM3 12.5 TH/MM3 Lymphocytes # (Auto) 0.8 TH/MM3 1.2 TH/MM3 Monocytes # (Auto) 0.4 TH/MM3 0.7 TH/MM3 Eosinophils # (Auto) 0.0 TH/MM3 0.0 TH/MM3 Basophils # (Auto) 0.6 TH/MM3 0.1 TH/MM3 CBC Comment AUTO DIFF DIFF FINAL Differential Comment AUTO DIFF CONFIRMED Sodium Level 142 MEQ/L 140 MEQ/L Potassium Level 3.9 MEQ/L 4.1 MEQ/L Chloride Level 106 MEQ/L 107 MEQ/L Carbon Dioxide Level 22.7 MEQ/L 24.4 MEQ/L Anion Gap 13 MEQ/L 9 MEQ/L Blood Urea Nitrogen 11 MG/DL 9 MG/DL Creatinine 1.10 MG/DL 0.90 MG/DL Estimat Glomerular Filtration 65 ML/MIN 82 ML/MIN Rate Random Glucose 154 MG/DL 98 MG/DL Lactic Acid Level 2.1 mmol/L 1.7 mmol/L Calcium Level 9.9 MG/DL 8.9 MG/DL Total Bilirubin 1.9 MG/DL Aspartate Amino Transf 25 U/L (AST/SGOT) Alanine Aminotransferase 74 U/L (ALT/SGPT) Alkaline Phosphatase 66 U/L Total Protein 7.8 GM/DL Albumin 4.2 GM/DL Lipase 512 U/L 147 U/L Urine Color YELLOW Urine Turbidity CLEAR Urine pH 6.5 Urine Specific [place] 1.015 Urine Protein 30 mg/dL Urine Glucose (UA) NEG mg/dL Urine Ketones 15 mg/dL Urine Occult Blood TRACE Urine Nitrite NEG Urine Bilirubin NEG Urine Leukocyte Esterase NEG Urine WBC 0-2 /hpf Urine Squamous Epithelial 0-5 /hpf Cells Microscopic Urinalysis Comment CULT NOT INDICATED Date/Time Procedure Status Source Growth 02/09/17 04:13 Gastric Occult Blood - Final Complete Gastric GASTROCCULT POSITIVE Physical Examination HEENT: Normocephalic; atraumatic; no jaundice. NGT to LIWS CHEST: CTA CARDIAC: RRR ABDOMEN: Soft, mildly bloated, mild mid abdominal tenderness; no hepatosplenomegaly; bowel sounds are present in all four quadrants. EXTREMITIES: No clubbing, cyanosis, or edema. SKIN: Normal; no rash; no jaundice. TRACING LATHE SET UP OPERATOR: No focal deficits; alert and oriented times three. (Bonita Clarke) Assessment and Plan Plan ASSESSMENT: - Partial small bowel obstruction. S/P Wing fundoplication at the [facility] about 4-5 years ago. His postoperative course was complicated by the development of 2 ileus and he reports that he also had 3 small bowel obstructions (resolved with conservative measures) during the first year. He had a colonoscopy with multiple polyps removed and has not had any further issues. He started having nausea, mid abdominal stabbing pain in waves, and bloating on Monday. He was not passing flatus at that time and came to the ER for further evaluation. CT scan abdomen and pelvis (02/08/17) revealed abnormal appearance to the stomach and proximal two thirds of the small bowel with markedly gaseous distention. Possible stricture in the proximal duodenum and a possible transition zone in the right lower quadrant in the distal small bowel. There is also a moderate size hiatus hernia with air-fluid level. There is no mass seen at the transition zone and no evidence of free fluid or free intraperitoneal gas. The patient may benefit from an NG tube. NGT to LIWS. He had bm and passed large amount of flatus last night, bloating and abdominal pain improved today. NPO. NGT to LIWS. - Leukocytosis. WBC 14.5. Afebrile. - Hypertension, hyperlipidemia, gout per primary PLAN: - NPO - NGT to LIWS - Upper GI series/SBFT with gastrografin - GS evaluation - IVF - PPI - Supportive care - Further recommendations to follow based on results of above - PT seen and examined by Dr. Rodríguez and myself and this note is written on her behalf (Bonita Clarke) Physician Comments seen, examined agree with above ugi series noted, ileus, if ngt drainage decrease we will schedule egd in am ( Nat Rodríguez MD) Bonita Clarke Feb 09, 2017 10:01 Nat Rodríguez MD Feb 09, 2017 16:15
[2017-02-09] MEDS ORDERED: DIATRIZOATE MEGLUM/DIATRIZOATE SOD 120 ML BTL (for RAD DIAG) NG ONE (11:45)
[2017-02-09] MEDS: MAGNESIUM CITRATE SOLN 300 ML BTL PO SCH ×2 (12:00→18:09)
--- NOTE | 2017-02-09 13:42 | EKG ---
Date Performed: 02/08/2017 Time Performed: 16:03:34 PTAGE: 76 years EKG: Sinus rhythm with borderline 1st degree A-V block Left axis deviation Inferior infarct - age undetermined Possibl e anterior infarct - age undetermined Lateral T wave changes may be due to myocardial ischemia Abnorm al ECG NO PREVIOUS TRACING DOCTOR: Yemi Lr Interpretating Date/Time 02/09/2017 13:40:03
--- NOTE | 2017-02-09 15:21 | RADRPT ---
EXAM DATE/TIME: 02/09/2017 11:36 CORRECTION Corrected on: February 17, 2017; Corrected Fluoro and Image count [place] COMPARISON: CT ABDOMEN & PELVIS W/O CONTRAST, February 08, 2017, 15:41. INDICATIONS : Abdominal pain, nausea, constipation FLUORO TIME: 0 minutes IMAGE COUNT: 10 CONTRAST: Gastrosilver IMAGING TIME(S): 15 min, 30 min, 1 hr, 1.5 hrs MEDICAL HISTORY : Gastroesophageal reflux disease. Hiatal hernia. SURGICAL HISTORY : hiatal hernia repair, devin fundiplication, gastrectomy ENCOUNTER: Initial ACUITY: 3 days PAIN SCORE: 5/10 LOCATION: Bilateral abdomen FINDINGS: Single contrast Gastrografin examination was performed through the patient's nasogastric tube. The en tire small bowel is visualized and contrast eventually gets into the colon after 3 hours with slight prominence of loops of bowel probably an ileus without a transition zone to suggest obstruction. The stomach is grossly intact. CONCLUSION: Ileus without definite signs of obstruction. Evelia Rodríguez MD on February 09, 2017 at 15:18 Board Certified Radiologist. This report was verified electronically.
--- NOTE | 2017-02-09 17:44 | PD.CONS ---
HPI Service General surgery Consult Requested By Reason for Consult Bowel obstruction Primary Care Physician Non-Staff History of Present Illness This is a 76-year-old male with a history of coronary artery disease hypertension and hyperlipidemia and surgical history including umbilical hernia repair as a child and open Chandler fundoplication 4-5 years ago who presented yesterday to the emergency department with crampy abdominal pain. He states that for a few months following his Chandler fundoplication she had multiple episodes similar to this one which he was told were ileus. He had no similar problems until now. He had a bowel movement up until yesterday. He did not have any vomiting but felt very bloated and states that he cannot really vomit after the Chandler fundoplication. The patient was noted in the emergency department have leukocytosis and CT abdomen and pelvis showed a significantly dilated stomach and proximal small bowel with a possible transition point. There was some narrowing to the duodenum as well. A small bowel follow-through was ordered and was performed today. There was no obvious obstruction but he did have an ileus. After 3 hours the contrast reached the colon and he has already had bowel movements. He is currently not in pain. Review of Systems Constitutional: DENIES: Fever, Chills Eyes: DENIES: Eye inflammation, Eye pain Cardiovascular: DENIES: Chest pain, Palpitations Gastrointestinal: COMPLAINS OF: Abdominal pain, Nausea Musculoskeletal: DENIES: Muscle aches, Stiffness Integumentary: DENIES: Pruritus, Rash Past Family Social History Past Medical History Coronary artery disease Hypertension Hyperlipidemia Past Surgical History Umbilical hernia repair as a child Open Chandler fundoplication Reported Medications Reported Meds & Active Scripts Active Reported Rosuvastatin (Rosuvastatin Calcium) 40 Mg Tab 40 Mg PO HS Allopurinol 300 Mg Tab 300 Mg PO HS Ramipril 5 Mg Cap 5 Mg PO HS Verapamil ER (Verapamil HCl) 180 Mg Tab 180 Mg PO HS Allergies: Coded Allergies: Adhesives (Verified Allergy, Intermediate, BRIGHT RED SKIN, 02/08/17) Iodine (Verified Allergy, Intermediate, RED/DRY SKIN ALL OVER, 02/08/17) Lidocaine (Verified Allergy, Intermediate, VASOVAGAL RESPONSE, 02/08/17) Active Ordered Medications Current Medications Medications (Trade) Dose Ordered Sig/Tyron Route Start Time Stop Time Status Last Admin (Vasotec Inj) 1.25 mg Q6H PRN IV 02/08/17 19:15 02/09/17 08:56 (Apresoline Inj) 10 mg Q6H PRN IV 02/08/17 19:15 02/08/17 23:43 Pantoprazole Sodium 40 mg 40 mg Q24H IV PUSH 02/09/17 07:00 02/09/17 06:31 (NS 1000 ml Inj) 1,000 ml @ 75 mls/hr [id number] IV 02/08/17 19:05 02/09/17 00:50 (NS Flush) 2 ml UNSCH PRN IV FLUSH 02/08/17 19:15 (NS Flush) 2 ml BID IV FLUSH 02/08/17 21:00 02/08/17 21:00 (Zofran Inj) 4 mg Q6H PRN IVP 02/08/17 19:15 (Reglan Inj) 5 mg Q6H PRN IV PUSH 02/08/17 19:15 (Morphine Inj) 1 mg Q3H PRN IV 02/08/17 19:15 (Morphine Inj) 2 mg Q3H PRN IV 02/08/17 19:15 (Morphine Inj) 2 mg Q3H PRN IV 02/08/17 19:15 (Narcan Inj) 0.4 mg UNSCH PRN IV 02/08/17 19:15 (Citroma Liq) 300 ml Q6H PO 02/09/17 12:00 02/09/17 18:01 (Dulcolax Ec) 10 mg Q3H PO 02/09/17 18:00 02/09/17 21:01 Family History Noncontributory Social History Social alcohol use. No tobacco or drug use. He lives in [facility] for only 2 months and is going away at the end of the month. Physical Exam Vital Signs Vital Signs Date Time Temp Pulse Resp B/P Pulse Ox O2 Delivery O2 Flow Rate FiO2 02/09/17 16:54 96.8 98 18 150/88 94 02/09/17 15:45 96.8 93 18 152/86 94 02/09/17 08:14 97.3 82 18 152/83 94 02/09/17 06:42 89 153/78 02/09/17 04:48 98.2 93 20 187/95 93 02/09/17 03:00 106 02/09/17 02:00 97.6 93 20 175/94 94 02/08/17 23:47 100 18 198/105 94 Room Air 02/08/17 23:32 102 18 205/116 95 Room Air 02/08/17 23:28 93 18 191/106 93 Room Air 02/08/17 22:38 94 16 181/97 94 Room Air 02/08/17 20:45 105 18 175/96 94 Room Air 02/08/17 19:03 97 18 166/93 92 Room Air 02/08/17 17:40 104 16 193/106 Room Air Physical Exam GENERAL: Awake and alert. No acute distress. Cooperative. HEAD: Normocephalic. Atraumatic. EYES: Pupils equal round and reactive to light bilaterally. No scleral icterus. ENT: NG tube in place currently clamped with about 300 cc output total CHEST: Lungs clear to auscultation bilaterally with no wheezing or rhonchi. No respiratory distress. CARDIOVASCULAR: Regular rate and rhythm. ABDOMEN: Round, moderate distention. Soft and nontender. Well-healed midline incision. EXTREMITIES: No cyanosis or edema. SKIN: Warm, dry, nonjaundiced. Laboratory Laboratory Tests Test 02/08/17 02/08/17 02/09/17 18:00 19:15 06:22 Lactic Acid Level 1.7 Urine Color YELLOW Urine Turbidity CLEAR Urine pH 6.5 Urine Specific Crescent 1.015 Urine Protein 30 Urine Glucose (UA) NEG Urine Ketones 15 Urine Occult Blood TRACE Urine Nitrite NEG Urine Bilirubin NEG Urine Leukocyte Esterase NEG Urine WBC 0-2 Urine Squamous Epithelial 0-5 Cells Microscopic Urinalysis Comment CULT NOT INDICATED White Blood Count 14.5 Red Blood Count 4.90 Hemoglobin 16.2 Hematocrit 47.4 Mean Corpuscular Volume 96.6 Mean Corpuscular Hemoglobin 33.0 Mean Corpuscular Hemoglobin 34.1 Concent Red Cell Distribution Width 14.1 Platelet Count 154 Mean Platelet Volume 9.1 Neutrophils (%) (Auto) 86.5 Lymphocytes (%) (Auto) 8.3 Monocytes (%) (Auto) 4.6 Eosinophils (%) (Auto) 0.1 Basophils (%) (Auto) 0.5 Neutrophils # (Auto) 12.5 Lymphocytes # (Auto) 1.2 Monocytes # (Auto) 0.7 Eosinophils # (Auto) 0.0 Basophils # (Auto) 0.1 CBC Comment DIFF FINAL Differential Comment Sodium Level 140 Potassium Level 4.1 Chloride Level 107 Carbon Dioxide Level 24.4 Anion Gap 9 Blood Urea Nitrogen 9 Creatinine 0.90 Estimat Glomerular Filtration 82 Rate Random Glucose 98 Calcium Level 8.9 Lipase 147 Date/Time Procedure Status Source Growth 02/09/17 04:13 Gastric Occult Blood - Final Complete Gastric GASTROCCULT POSITIVE Result Diagram: 02/09/1762102/09/17621 Imaging Last Impressions Upper GI and Small Bowel X-Ray 02/09/17 0000 Signed Impressions: Service Date/Time: January 11:36 - CONCLUSION: Ileus without definite signs of obstruction. Evelia Rodríguez MD Abdomen/Pelvis CT 02/08/17 1510 Signed Impressions: Service Date/Time: Wednesday, February 08, 2017 15:41 - CONCLUSION: Abnormal appearance to the stomach and proximal two thirds of the small bowel with marked gaseous distention. Possible stricture in the proximal duodenum and a possible transition zone in the right lower quadrant in the distal small bowel. There is also a moderate size hiatus hernia with air-fluid level. There is no mass seen at the transition zone and no evidence of free fluid or free intraperitoneal gas. The patient may benefit from a NG tube. Vahid Serrano MD Chest X-Ray 02/08/17 0000 Signed Impressions: Service Date/Time: Wednesday, February 08, 2017 17:13 - CONCLUSION: A gastric tube tip is either near the fundus of the stomach or in the hiatus hernia. Side-port location cannot be determined on this film. Vahid Serrano MD Abdomen X-Ray 02/08/17 0000 Signed Impressions: Service Date/Time: Wednesday, February 08, 2017 17:58 - CONCLUSION: Gastrografin obscures the location of the NG tube. Given the pattern of the Gastrografin I suspect the NG tube is coiled within the lower thoracic esophagus or hiatal hernia. Vahid Fraser Jr., MD Assessment and Plan Assessment and Plan 76-year-old male who probably has a resolving partial small bowel obstruction. He is planned to undergo an EGD tomorrow morning which is very reasonable to especially assess the duodenal narrowing. I suspect he will not need any operative intervention. If he continues to have low output and pass gas and stool the NG tube can be removed. I will see him tomorrow. William Hearn MD Feb 09, 2017 17:44
[2017-02-09] MEDS: BISACODYL EC 5 MG TABEC PO SCH ×2 (18:00→21:00)
[2017-02-10] VITALS (10 sets, daily range): BP systolic 118–184; BP diastolic 65–94; PULSE 75–96; RESP 18–21; TEMP 96–99; O2SAT 93–97
[2017-02-10] MEDS: SODIUM CHLOR 0.9% 1000 ML INJ 1,000 ML IV SCH ×2 (01:10→14:25)
[2017-02-10] MEDS: PANTOPRAZOLE SODIUM 40 MG VIAL IV PUSH SCH (05:26)
[2017-02-10] MEDS: ENALAPRILAT 1.25 MG/ML VIAL IV PRN (05:26)
[2017-02-10] MEDS: SODIUM CHLORIDE 0.9% FLUSH 10 ML FLUSH IV FLUSH SCH ×2 (09:41→21:00)
[2017-02-10 09:45] LABS: AUTOMATED NEUTROPHIL # 9.5 TH/MM3 (1.8-7.7); BASOPHIL % 0.3 % (0.0-2.0); EOSINOPHIL % 0.3 % (0.0-4.0); HEMATOCRIT 49.9 % (39.0-51.0); HEMO FLAGS DIFF FINAL; LYMPH % 11.1 % (9.0-44.0); LYMPHOCYTE # 1.3 TH/MM3 (1.0-4.8); MEAN CORPUSCULAR HEMOGLOBIN 32.7 PG (27.0-34.0); MEAN CORPUSCULAR HGB CONC 33.4 % (32.0-36.0); NEUT % 82.3 % (16.0-70.0); PLATELET COUNT 141 TH/MM3 (150-450); RED BLOOD COUNT 5.09 MIL/MM3 (4.50-5.90); RED CELL DISTRIBUTION WIDTH 14.5 % (11.6-17.2); WHITE BLOOD COUNT 11.5 TH/MM3 (4.0-11.0)
--- NOTE | 2017-02-10 12:15 | GIPROC ---
[facility] [address] [facility]. [facility], [id number] EGD PROCEDURE REPORT EXAM DATE: 02/10/2017 PATIENT NAME: Christiano Levine MR #: [id number] BIRTHDATE: 1940 ATTENDING: Nat Rodríguez MD ORDER #: [id number] BANKRUPT[employer] MANAGER: Epi Peralta and Pearl Magallanes STATUS: inpatient INDICATIONS: The patient is a 76 yr old male here for an EGD due to nausea, vomiting, abnormal ct PROCEDURE PERFORMED: EGD w/ biopsy MEDICATIONS: Per Anesthesia and None. TOPICAL ANESTHETIC: none CONSENT: The patient understands the risks and benefits of the procedure and understands that these risks include, but are not limited to: sedation, allergic reaction, infection, perforation and/or bleeding. Alternative means of evaluation and treatment include, among others: physical exam, x-rays, and/or surgical intervention. The patient elects to proceed with this endoscopic procedure. medical equipment was checked for proper function. Hand hygiene and appropriate measures for infection prevention was taken. After the risks, benefits and alternatives of the procedure were thoroughly explained, Informed consent was verified, confirmed and timeout was successfully executed by the treatment team. The patient was anesthetized with topical anesthesia and the Pentax [id number] endoscope was introduced through the mouth and advanced to the second portion of the duodenum. Retroflexed views revealed s/p niessen funduplication The gastroscope was then slowly withdrawn and removed. Gastritis antrum-biopsy esophagitis distal esophagus-biopsy. ADVERSE EVENTS: There were no complications. IMPRESSIONS: 1. Gastritis antrum-biopsy esophagitis distal esophagus-biopsy 2. Retroflexed views revealed s/p niessen funduplication RECOMMENDATIONS: 1. Await biopsy results. Biopsy results will not be ready for 7-10 days. If you don't hear from us in two weeks, call our office for biopsy results. 2. Anti-reflux regimen 3. Continue PPI 4. Avoid NSAIDS 5. Clear liquid diet d/c ngt PATIENT CONDITION: stable DISPOSITION: Inpatient REPEAT EXAM: EGD pending biopsy results Nat Rodríguez MD eSigned: Nat Rodríguez MD 02/10/2017 12:14 PM cc: PATIENT NAME: Christiano Levine MR#: [id number]
[2017-02-10] MEDS ORDERED: DO NOT ADM ANY ANTICOAGULANT DRUGS PRN (12:33)
--- NOTE | 2017-02-10 12:33 | HHI.PR ---
Subjective Subjective Notes He is off the floor in GI lab. Based on imaging and NG output, from my standpoint, at worst he appears to have a resolving partial obstruction. I would be ok with ng removal and advancing diet as tolerated. D/w Dr. Coon. Objective Vitals/I&O Vital Signs Date Time Temp Pulse Resp B/P Pulse Ox O2 Delivery O2 Flow Rate FiO2 02/10/17 11:18 97.6 96 21 172/90 97 02/09/17 18:16 21 02/08/17 23:47 Room Air Labs Laboratory Tests Test 02/10/17 09:21 White Blood Count 11.5 Red Blood Count 5.09 Hemoglobin 16.6 Hematocrit 49.9 Mean Corpuscular Volume 98.0 Mean Corpuscular Hemoglobin 32.7 Mean Corpuscular Hemoglobin 33.4 Concent Red Cell Distribution Width 14.5 Platelet Count 141 Mean Platelet Volume 8.7 Neutrophils (%) (Auto) 82.3 Lymphocytes (%) (Auto) 11.1 Monocytes (%) (Auto) 6.0 Eosinophils (%) (Auto) 0.3 Basophils (%) (Auto) 0.3 Neutrophils # (Auto) 9.5 Lymphocytes # (Auto) 1.3 Monocytes # (Auto) 0.7 Eosinophils # (Auto) 0.0 Basophils # (Auto) 0.0 CBC Comment DIFF FINAL Differential Comment Date/Time Procedure Status Source Growth 02/09/17 04:13 Gastric Occult Blood - Final Complete Gastric GASTROCCULT POSITIVE Radiology Last Impressions Upper GI and Small Bowel X-Ray 02/09/17 0000 Signed Impressions: Service Date/Time: January 11:36 - CONCLUSION: Ileus without definite signs of obstruction. Evelia Rodríguez MD Abdomen/Pelvis CT 02/08/17 1510 Signed Impressions: Service Date/Time: Wednesday, February 08, 2017 15:41 - CONCLUSION: Abnormal appearance to the stomach and proximal two thirds of the small bowel with marked gaseous distention. Possible stricture in the proximal duodenum and a possible transition zone in the right lower quadrant in the distal small bowel. There is also a moderate size hiatus hernia with air-fluid level. There is no mass seen at the transition zone and no evidence of free fluid or free intraperitoneal gas. The patient may benefit from a NG tube. Vahid Serrano MD Chest X-Ray 02/08/17 0000 Signed Impressions: Service Date/Time: Wednesday, February 08, 2017 17:13 - CONCLUSION: A gastric tube tip is either near the fundus of the stomach or in the hiatus hernia. Side-port location cannot be determined on this film. Vahid Serrano MD Abdomen X-Ray 02/08/17 0000 Signed Impressions: Service Date/Time: Wednesday, February 08, 2017 17:58 - CONCLUSION: Gastrografin obscures the location of the NG tube. Given the pattern of the Gastrografin I suspect the NG tube is coiled within the lower thoracic esophagus or hiatal hernia. Vahid Fraser Jr., MD Dhiraj,William DURAN Feb 10, 2017 12:33
[2017-02-10] MEDS ORDERED: LACTATED RINGER'S 1000 ML IV PRN (13:00)
[2017-02-10] MEDS ORDERED: INSULIN HUMAN REGULAR 1,000 UNITS/10 ML VIAL SQ PRN (13:00)
[2017-02-10] MEDS ORDERED: CHLORHEXIDINE GLUCONATE 2 % 1 PACK (2 CLOTHS) TOPICAL PRN (13:00)
[2017-02-10] MEDS ORDERED: SODIUM CHLORID 0.9% 500 ML IV PRN (13:00)
[2017-02-10] MEDS ORDERED: POVIDONE IODINE 5% (ANTISEPSIS KIT) 4 APPLICATIONS EACH NARE PRN (13:00)
[2017-02-10] MEDS ORDERED: METOPROLOL TARTRATE 25 MG TAB PO PRN (13:00)
--- NOTE | 2017-02-10 13:55 | HHI.PR ---
Subjective Remarks came back from GI lab. NG tube has been removed. resting comfortably with no distress. abdominal pain has much improved. at the bedside. d/w the RN. Objective Vitals Vital Signs Date Time Temp Pulse Resp B/P Pulse Ox O2 Delivery O2 Flow Rate FiO2 02/10/17 13:29 97.3 75 18 144/80 94 02/10/17 12:45 98.0 86 16 143/87 99 Nasal Cannula 2 02/10/17 12:30 98.0 81 16 143/92 99 Nasal Cannula 2 02/10/17 11:18 97.6 96 21 172/90 97 02/10/17 08:16 96.0 82 18 159/81 93 02/10/17 04:00 96.9 81 20 184/94 93 02/10/17 00:00 99.0 96 20 127/77 93 02/09/17 20:00 99.3 99 20 132/76 93 02/09/17 18:16 21 02/09/17 18:12 96.7 99 18 177/95 94 02/09/17 16:54 96.8 98 18 150/88 94 02/09/17 15:45 96.8 93 18 152/86 94 I/O 02/09/17 02/09/17 02/09/17 02/10/17 02/10/17 02/10/17 07:00 15:00 23:00 07:00 15:00 23:00 Intake Total 568 ml 150 ml Output Total 1000 ml 675 ml Balance -432 ml -675 ml 150 ml Intake Oral 0 ml IV Total 568 ml 50 ml Other 100 ml Output Urine Total 700 ml 600 ml Gastric Drainage Total 300 ml 75 ml # Voids 4 1 # Bowel Movements 0 2 1 Result Diagram: 02/10/17 0921 02/09/17 0622 Imaging Last Impressions Upper GI and Small Bowel X-Ray 02/09/17 0000 Signed Impressions: Service Date/Time: January 11:36 - CONCLUSION: Ileus without definite signs of obstruction. Evelia Rodríguez MD Abdomen/Pelvis CT 02/08/17 1510 Signed Impressions: Service Date/Time: Wednesday, February 08, 2017 15:41 - CONCLUSION: Abnormal appearance to the stomach and proximal two thirds of the small bowel with marked gaseous distention. Possible stricture in the proximal duodenum and a possible transition zone in the right lower quadrant in the distal small bowel. There is also a moderate size hiatus hernia with air-fluid level. There is no mass seen at the transition zone and no evidence of free fluid or free intraperitoneal gas. The patient may benefit from a NG tube. Vahid Serrano MD Chest X-Ray 02/08/17 0000 Signed Impressions: Service Date/Time: Wednesday, February 08, 2017 17:13 - CONCLUSION: A gastric tube tip is either near the fundus of the stomach or in the hiatus hernia. Side-port location cannot be determined on this film. Vahid Serrano MD Abdomen X-Ray 02/08/17 0000 Signed Impressions: Service Date/Time: Wednesday, February 08, 2017 17:58 - CONCLUSION: Gastrografin obscures the location of the NG tube. Given the pattern of the Gastrografin I suspect the NG tube is coiled within the lower thoracic esophagus or hiatal hernia. Vahid Fraser Jr., MD Objective Remarks GENERAL: This is a well-nourished, well-developed patient, in no apparent distress. CARDIOVASCULAR: Regular rate and regular rhythm without murmurs, gallops, or rubs. RESPIRATORY: Clear to auscultation. Breath sounds equal bilaterally. No wheezes , rales, or rhonchi. GASTROINTESTINAL: Abdomen soft, non-tender, nondistended. Normal, active bowel sounds MUSCULOSKELETAL: Extremities without clubbing, cyanosis, or edema. NEURO: Alert & Oriented x4 to person, place, time, situation. Moves all ext x4 Procedures EGD Medications and IVs Current Medications Morphine Sulfate (Morphine Inj) 4 mg ONCE ONCE IV PUSH Last administered on 15:35; Start 02/08/17 at 15:15; Stop 02/08/17 at 15:16; Status DC Ondansetron HCl 4 mg 4 mg ONCE ONCE IVP Last administered on 02/08/17 15:33; Start 02/08/17 at 15:15; Stop 02/08/17 at 15:16; Status DC Sodium Chloride (NS 1000 ml Inj) 1,000 ml @ 1,000 mls/hr Q1H IV Last administered on 02/08/17 15:33; Start 02/08/17 at 15:10; Stop 02/08/17 at 16:09 ; Status DC Sodium Chloride (NS Flush) 2 ml UNSCH PRN IV FLUSH FLUSH AFTER USING IV ACCESS ; Start 02/08/17 at 15:15; Stop 02/09/17 at 01:57; Status DC Pantoprazole Sodium 40 mg 40 mg ONCE ONCE IV PUSH Last administered on 18:22; Start 02/08/17 at 17:45; Stop 02/08/17 at 17:46; Status DC Sodium Chloride (NS 1000 ml Inj) 1,000 ml @ 125 mls/hr Q8H IV Last administered on 02/08/17 18:22; Start 02/08/17 at 17:31; Stop 02/09/17 at 01:30 ; Status DC Diatrizoate Meglum/ Diatrizoate Sod ( Gastroview Liq) 10 ml STK-MED ONCE NG Last administered on 02/08/17 17:55; Start 02/08/17 at 17:55; Stop 02/08/17 at 18:55; Status DC Enalaprilat (Vasotec Inj) 1.25 mg Q6H PRN IV SBP> OR = 160, DBP> OR = 95 Last administered on 02/10/17 05:26; Start 02/08/17 at 19:15 Hydralazine HCl (Apresoline Inj) 10 mg Q6H PRN IV SBP> OR = 180, DBP> OR = 100 Last administered on 02/08/17 23:43; Start 02/08/17 at 19:15 Pantoprazole Sodium 40 mg 40 mg Q24H IV PUSH Last administered on 02/10/17 05: 26; Start 02/09/17 at 07:00 Sodium Chloride (NS 1000 ml Inj) 1,000 ml @ 75 mls/hr [id number] IV Last administered on 02/10/17 01:10; Start 02/08/17 at 19:05 Sodium Chloride (NS Flush) 2 ml UNSCH PRN IV FLUSH FLUSH AFTER USING IV ACCESS ; Start 02/08/17 at 19:15 Sodium Chloride (NS Flush) 2 ml BID IV FLUSH Last administered on 02/09/17 21: 00; Start 02/08/17 at 21:00 Ondansetron HCl (Zofran Inj) 4 mg Q6H PRN IVP NAUSEA OR VOMITING; Start at 19:15 Metoclopramide HCl (Reglan Inj) 5 mg Q6H PRN IV PUSH NAUSEA OR VOMITING; Start 02/08/17 at 19:15 Morphine Sulfate (Morphine Inj) 1 mg Q3H PRN IV Pain 3-5; if unable to take PO ; Start 02/08/17 at 19:15 Morphine Sulfate (Morphine Inj) 2 mg Q3H PRN IV Pain 6-10;if unable to take PO ; Start 02/08/17 at 19:15 Morphine Sulfate (Morphine Inj) 2 mg Q3H PRN IV BREAKTHROUGH PAIN; Start at 19:15 Naloxone HCl (Narcan Inj) 0.4 mg UNSCH PRN IV SEE LABEL COMMENTS; Start at 19:15 Acetaminophen (Tylenol Supp) 650 mg ONCE PRN RECTAL headache; Start 02/09/17 at 02:00; Stop 02/09/17 at 07:30; Status DC Enalaprilat (Vasotec Inj) 1.25 mg ONCE ONCE IV PUSH Last administered on 02/09 04:23; Start 02/09/17 at 04:00; Stop 02/09/17 at 04:01; Status DC Magnesium Citrate (Citroma Liq) 300 ml Q6H PO ; Start 02/09/17 at 12:00; Stop at 18:01; Status DC Bisacodyl (Dulcolax Ec) 10 mg Q3H PO ; Start 02/09/17 at 18:00; Stop 02/09/17 at 21:01; Status DC Diatrizoate Meglum/ Diatrizoate Sod 240 ml 240 ml STK-MED ONCE NG Last administered on 02/09/17t 11:45; Start 02/09/17 at 11:45; Stop 02/09/17 at 13:33 ; Status DC Lactated Ringer's 1,000 ml @ 30 mls/hr Q24H PRN IV SEE LABEL COMMENTS; Start at 13:00; Stop 02/13/17 at 12:59 Sodium Chloride (NS 500 ml Inj) 500 ml @ 30 mls/hr [id number] PRN IV SEE LABEL COMMENTS; Start 02/10/17 at 13:00; Stop 02/13/17 at 12:59 Metoprolol Tartrate (Lopressor) 25 mg [employer] PRN PO SEE LABEL COMMENTS; Start 02/10/17 at 13:00; Stop 02/13/17 at 12:59 Povidone Iodine (Betadine 5% Antisepsis Kit) 1 applic [employer] PRN EACH NARE SEE LABEL COMMENTS; Start 02/10/17 at 13:00; Stop 02/13/17 at 12:59 Chlorhexidine Gluconate (Chlorhexidine 2% Cloth) 3 pack [employer] PRN TOPICAL SEE LABEL COMMENTS; Start 02/10/17 at 13:00; Stop 02/13/17 at 12:59 Insulin Human Regular (NovoLIN R INJ) See Protocol Table ... [employer] PRN SQ SEE PROTOCOL TABLE; Start 02/10/17 at 13:00; Stop 02/13/17 at 12:59 Miscellaneous Information ALL NURSING DEPARTME... UNSCH PRN .XX SEE LABEL COMMENTS; Start 02/10/17 at 12:33; Stop 02/11/17 at 12:32 A/P Assessment and Plan A/P - small bowel obstruction vs ileus- improving s/p EGD with gastritis and esophagitis- biopsy to be followed up. continue PPI- avoid NSAIDs. will start on liquid diet. GI is following- surgery evaluation appreciated; d/w today. -leukocytosis- likely stress induced-improved. will monitor -hypertension; resume home meds- on IV vasotec and hydralazine as needed -dyslipidemia/ gout; resume home meds upon discharge. -DVT prophylaxis with SCD's Discharge Planning possible dc home in am if tolerates the diet and cleared by GI. Vipin Caraballo MD Feb 10, 2017 13:55
[2017-02-10] MEDS ORDERED: PROT40TA PO (13:57)
[2017-02-10] MEDS: RAMIPRIL 5 MG CAP PO SCH ×2 (15:30→22:00)
[2017-02-10] MEDS ORDERED: PROPOFOL 200 MG/20 ML AMP IV ONE (16:06)
[2017-02-10] MEDS ORDERED: RAMIPRIL 5 MG CAP PO SCH (21:00)
[2017-02-10] MEDS ORDERED: VERAPAMIL HCL 180 MG SUSTAINED RELEASE TAB PO SCH (21:00)
[2017-02-11] VITALS: BP 139/69; PULSE 79; RESP 20; TEMP 98; O2SAT 96
[2017-02-11] MEDS: SODIUM CHLOR 0.9% 1000 ML INJ 1,000 ML IV SCH ×2 (03:45→09:55)
[2017-02-11 04:00] VITALS: BP 117/63; PULSE 59; RESP 20; TEMP 98.2; O2SAT 94
[2017-02-11] MEDS: PANTOPRAZOLE SODIUM 40 MG VIAL IV PUSH SCH (05:58)
[2017-02-11 08:00] VITALS: PULSE 52
[2017-02-11 08:16] VITALS: BP 118/65; PULSE 51; RESP 18; TEMP 97.4; O2SAT 93
[2017-02-11] MEDS: SODIUM CHLORIDE 0.9% FLUSH 10 ML FLUSH IV FLUSH SCH (09:00)
--- NOTE | 2017-02-11 11:03 | HHI.PR ---
Subjective Remarks resting comfortably with no distress. no abdominal pain, nausea or vomiting. tolerating the liquid diet. had a BM yesterday and one this morning. Objective Vitals Vital Signs Date Time Temp Pulse Resp B/P Pulse Ox O2 Delivery O2 Flow Rate FiO2 02/11/17 08:16 97.4 51 18 118/65 93 02/11/17 04:00 98.2 59 20 117/63 94 02/11/17 00:00 98.0 79 20 139/69 96 02/10/17 20:00 97.8 78 20 118/65 94 02/10/17 19:15 80 02/10/17 18:13 95 21 02/10/17 17:05 98.5 84 18 146/85 95 02/10/17 13:29 97.3 75 18 144/80 94 02/10/17 13:25 93 Nasal Cannula 1.50 02/10/17 12:45 98.0 86 16 143/87 99 Nasal Cannula 2 02/10/17 12:30 98.0 81 16 143/92 99 Nasal Cannula 2 02/10/17 11:18 97.6 96 21 172/90 97 I/O 02/10/17 02/10/17 02/10/17 02/11/17 02/11/17 02/11/17 07:00 15:00 23:00 07:00 15:00 23:00 Intake Total 150 ml 360 ml 1688 ml Output Total 300 ml Balance 150 ml 360 ml 1388 ml Intake Oral 360 ml 480 ml IV Total 50 ml 1208 ml Other 100 ml Output Urine Total 300 ml # Voids 1 2 1 1 # Bowel Movements 1 1 0 2 Result Diagram: 02/10/17 0921 02/09/17 0622 Imaging Last Impressions Upper GI and Small Bowel X-Ray 02/09/17 0000 Signed Impressions: Service Date/Time: January 11:36 - CONCLUSION: Ileus without definite signs of obstruction. Evelia Rodríguez MD Abdomen/Pelvis CT 02/08/17 1510 Signed Impressions: Service Date/Time: Wednesday, February 08, 2017 15:41 - CONCLUSION: Abnormal appearance to the stomach and proximal two thirds of the small bowel with marked gaseous distention. Possible stricture in the proximal duodenum and a possible transition zone in the right lower quadrant in the distal small bowel. There is also a moderate size hiatus hernia with air-fluid level. There is no mass seen at the transition zone and no evidence of free fluid or free intraperitoneal gas. The patient may benefit from a NG tube. Vahid Serrano MD Chest X-Ray 02/08/17 0000 Signed Impressions: Service Date/Time: Wednesday, February 08, 2017 17:13 - CONCLUSION: A gastric tube tip is either near the fundus of the stomach or in the hiatus hernia. Side-port location cannot be determined on this film. Vahid Serrano MD Abdomen X-Ray 02/08/17 0000 Signed Impressions: Service Date/Time: Wednesday, February 08, 2017 17:58 - CONCLUSION: Gastrografin obscures the location of the NG tube. Given the pattern of the Gastrografin I suspect the NG tube is coiled within the lower thoracic esophagus or hiatal hernia. Vahid Fraser Jr., MD Objective Remarks GENERAL: This is a well-nourished, well-developed patient, in no apparent distress. CARDIOVASCULAR: Regular rate and regular rhythm without murmurs, gallops, or rubs. RESPIRATORY: Clear to auscultation. Breath sounds equal bilaterally. No wheezes , rales, or rhonchi. GASTROINTESTINAL: Abdomen soft, non-tender, nondistended. Normal, active bowel sounds MUSCULOSKELETAL: Extremities without clubbing, cyanosis, or edema. NEURO: Alert & Oriented x4 to person, place, time, situation. Moves all ext x4 Procedures EGD Medications and IVs Current Medications Morphine Sulfate (Morphine Inj) 4 mg ONCE ONCE IV PUSH Last administered on 15:35; Start 02/08/17 at 15:15; Stop 02/08/17 at 15:16; Status DC Ondansetron HCl 4 mg 4 mg ONCE ONCE IVP Last administered on 02/08/17 15:33; Start 02/08/17 at 15:15; Stop 02/08/17 at 15:16; Status DC Sodium Chloride (NS 1000 ml Inj) 1,000 ml @ 1,000 mls/hr Q1H IV Last administered on 02/08/17 15:33; Start 02/08/17 at 15:10; Stop 02/08/17 at 16:09 ; Status DC Sodium Chloride (NS Flush) 2 ml UNSCH PRN IV FLUSH FLUSH AFTER USING IV ACCESS ; Start 02/08/17 at 15:15; Stop 02/09/17 at 01:57; Status DC Pantoprazole Sodium 40 mg 40 mg ONCE ONCE IV PUSH Last administered on 18:22; Start 02/08/17 at 17:45; Stop 02/08/17 at 17:46; Status DC Sodium Chloride (NS 1000 ml Inj) 1,000 ml @ 125 mls/hr Q8H IV Last administered on 02/08/17 18:22; Start 02/08/17 at 17:31; Stop 02/09/17 at 01:30 ; Status DC Diatrizoate Meglum/ Diatrizoate Sod ( Gastroview Liq) 10 ml STK-MED ONCE NG Last administered on 02/08/17 17:55; Start 02/08/17 at 17:55; Stop 02/08/17 at 18:55; Status DC Enalaprilat (Vasotec Inj) 1.25 mg Q6H PRN IV SBP> OR = 160, DBP> OR = 95 Last administered on 02/10/17 05:26; Start 02/08/17 at 19:15 Hydralazine HCl (Apresoline Inj) 10 mg Q6H PRN IV SBP> OR = 180, DBP> OR = 100 Last administered on 02/08/17 23:43; Start 02/08/17 at 19:15 Pantoprazole Sodium 40 mg 40 mg Q24H IV PUSH Last administered on 02/11/17 05: 58; Start 02/09/17 at 07:00 Sodium Chloride (NS 1000 ml Inj) 1,000 ml @ 75 mls/hr [id number] IV Last administered on 02/11/17 09:55; Start 02/08/17 at 19:05 Sodium Chloride (NS Flush) 2 ml UNSCH PRN IV FLUSH FLUSH AFTER USING IV ACCESS ; Start 02/08/17 at 19:15 Sodium Chloride (NS Flush) 2 ml BID IV FLUSH Last administered on 02/10/17 21: 00; Start 02/08/17 at 21:00 Ondansetron HCl (Zofran Inj) 4 mg Q6H PRN IVP NAUSEA OR VOMITING; Start at 19:15 Metoclopramide HCl (Reglan Inj) 5 mg Q6H PRN IV PUSH NAUSEA OR VOMITING; Start 02/08/17 at 19:15 Morphine Sulfate (Morphine Inj) 1 mg Q3H PRN IV Pain 3-5; if unable to take PO ; Start 02/08/17 at 19:15 Morphine Sulfate (Morphine Inj) 2 mg Q3H PRN IV Pain 6-10;if unable to take PO ; Start 02/08/17 at 19:15 Morphine Sulfate (Morphine Inj) 2 mg Q3H PRN IV BREAKTHROUGH PAIN; Start at 19:15 Naloxone HCl (Narcan Inj) 0.4 mg UNSCH PRN IV SEE LABEL COMMENTS; Start at 19:15 Acetaminophen (Tylenol Supp) 650 mg ONCE PRN RECTAL headache; Start 02/09/17 at 02:00; Stop 02/09/17 at 07:30; Status DC Enalaprilat (Vasotec Inj) 1.25 mg ONCE ONCE IV PUSH Last administered on 02/09t 04:23; Start 02/09/17 at 04:00; Stop 02/09/17 at 04:01; Status DC Magnesium Citrate (Citroma Liq) 300 ml Q6H PO ; Start 02/09/17 at 12:00; Stop at 18:01; Status DC Bisacodyl (Dulcolax Ec) 10 mg Q3H PO ; Start 02/09/17 at 18:00; Stop 02/09/17 at 21:01; Status DC Diatrizoate Meglum/ Diatrizoate Sod 240 ml 240 ml STK-MED ONCE NG Last administered on 02/09/17t 11:45; Start 02/09/17 at 11:45; Stop 02/09/17 at 13:33 ; Status DC Lactated Ringer's 1,000 ml @ 30 mls/hr Q24H PRN IV SEE LABEL COMMENTS; Start at 13:00; Stop 02/13/17 at 12:59 Sodium Chloride (NS 500 ml Inj) 500 ml @ 30 mls/hr [id number] PRN IV SEE LABEL COMMENTS; Start 02/10/17 at 13:00; Stop 02/13/17 at 12:59 Metoprolol Tartrate (Lopressor) 25 mg RESIDENTIAL CASE MANAGER PRN PO SEE LABEL COMMENTS; Start 02/10/17 at 13:00; Stop 02/13/17 at 12:59 Povidone Iodine (Betadine 5% Antisepsis Kit) 1 applic RESIDENTIAL CASE MANAGER PRN EACH NARE SEE LABEL COMMENTS; Start 02/10/17 at 13:00; Stop 02/13/17 at 12:59 Chlorhexidine Gluconate (Chlorhexidine 2% Cloth) 3 pack RESIDENTIAL CASE MANAGER PRN TOPICAL SEE LABEL COMMENTS; Start 02/10/17 at 13:00; Stop 02/13/17 at 12:59 Insulin Human Regular (NovoLIN R INJ) See Protocol Table ... RESIDENTIAL CASE MANAGER PRN SQ SEE PROTOCOL TABLE; Start 02/10/17 at 13:00; Stop 02/13/17 at 12:59 Miscellaneous Information ALL NURSING DEPARTME... UNSCH PRN .XX SEE LABEL COMMENTS; Start 02/10/17 at 12:33; Stop 02/11/17 at 12:32 Ramipril (Altace) 5 mg HS PO ; Start 02/10/17 at 21:00; Stop 02/10/17 at 21:00; Status DC Verapamil HCl (Isoptin Sr) 180 mg HS PO Last administered on 02/10/17 22:00; Start 02/10/17 at 21:00 Ramipril (Altace) 5 mg HS PO Last administered on 02/10/17t 22:00; Start at 14:00 Propofol (Diprivan 200 Mg/20 ml Inj) 150 mg STK-MED ONCE IV ; Start 02/10/17 at 16:06; Stop 02/10/17 at 16:07; Status DC A/P Assessment and Plan A/P - small bowel obstruction vs ileus- resolved. s/p EGD with gastritis and esophagitis- biopsy to be followed up. continue PPI- avoid NSAIDs. will advance the diet. d/w GI and cleared for discharge. previously d/w ( general surgery). -leukocytosis- likely stress induced-improved. will monitor -hypertension; better- resumed home meds- -dyslipidemia/ gout; resumed home meds upon discharge. -DVT prophylaxis with SCD's Discharge Planning dc home later this afternoon if tolerates the diet. see med list. d/w the patient and . f/u with pcp and GI. Vipin Caraballo MD Feb 11, 2017 11:03 Vipin Caraballo MD Feb 11, 2017 11:03
--- NOTE | 2017-02-11 11:04 | HHI.DCPOC ---
Discharge Care Plan Diagnosis: (1) SBO (small bowel obstruction) Your Health Problems Are: Irregular Bowel Function Goals to Promote Your Health * To prevent worsening of your condition and complications * To maintain your health at the optimal level Directions to Meet Your Goals Take your medications as prescribed Follow your dietary instruction Follow activity as directed Keep your appointments as scheduled Take your immunizations and boosters as scheduled If your symptoms worsen call your PCP, if no PCP go to Urgent Care Center or Emergency Room Smoking is Dangerous to Your Health. Avoid second hand smoke Call the 24-hour hour crisis hotline for domestic abuse at Vipin Caraballo MD Feb 11, 2017 11:04
--- NOTE | 2017-02-11 11:05 | HHI.DS ---
Discharge Summary Admission Date Feb 08, 2017 at 19:10 Discharge Date: Feb 11, 2017 Admitting Diagnosis abdominal pain, gastric distention, SBO (1) SBO (small bowel obstruction) ICD Code: K56.69 Diagnosis: Principal Procedures EGD Brief History - From Admission patient is a 76 y/o male with history of [place] Fundoplication and small bowel obstruction few years ago presented to ER with abdominal pain. he says that the pain started few days ago. the pain initially started on left flank but gradually shifted to the periumbilical area.the pain is colicky in nature and moderate in intensity. the pain was associated with nausea but with no emesis. he had a small bowel movement yesterday. he denies fever, chills. CBC/BMP: 02/10/17 0921 02/09/17 0622 Significant Findings Laboratory Tests Test 02/08/17 02/08/17 02/09/17 02/10/17 15:30 19:15 06:22 09:21 White Blood Count 15.8 TH/MM3 14.5 TH/MM3 11.5 TH/MM3 (4.0-11.0) (4.0-11.0) (4.0-11.0) Hemoglobin 17.7 GM/DL (13.0-17.0) Hematocrit 53.6 % (39.0-51.0) Neutrophils (%) (Auto) 89.2 % 86.5 % 82.3 % (16.0-70.0) (16.0-70.0) (16.0-70.0) Lymphocytes (%) (Auto) 4.9 % 8.3 % (9.0-44.0) (9.0-44.0) Basophils (%) (Auto) 3.6 % (0.0-2.0) Neutrophils # (Auto) 14.0 TH/MM3 12.5 TH/MM3 9.5 TH/MM3 (1.8-7.7) (1.8-7.7) (1.8-7.7) Lymphocytes # (Auto) 0.8 TH/MM3 (1.0-4.8) Basophils # (Auto) 0.6 TH/MM3 (0-0.2) Estimat Glomerular Filtration 65 ML/MIN (>89) 82 ML/MIN (>89) Rate Random Glucose 154 MG/DL (74-106) Lactic Acid Level 2.1 mmol/L (0.4-2.0) Total Bilirubin 1.9 MG/DL (0.2-1.0) Lipase 512 U/L (73-393) Urine Protein 30 mg/dL (NEG-TRACE) Urine Ketones 15 mg/dL (NEG) Urine Occult Blood TRACE (NEG) Platelet Count 141 TH/MM3 (150-450) Imaging Last Impressions Upper GI and Small Bowel X-Ray 02/09/17 0000 Signed Impressions: Service Date/Time: January 11:36 - CONCLUSION: Ileus without definite signs of obstruction. Evelia Rodríguez MD Abdomen/Pelvis CT 02/08/17 1510 Signed Impressions: Service Date/Time: Wednesday, February 08, 2017 15:41 - CONCLUSION: Abnormal appearance to the stomach and proximal two thirds of the small bowel with marked gaseous distention. Possible stricture in the proximal duodenum and a possible transition zone in the right lower quadrant in the distal small bowel. There is also a moderate size hiatus hernia with air-fluid level. There is no mass seen at the transition zone and no evidence of free fluid or free intraperitoneal gas. The patient may benefit from a NG tube. Vahid Serrano MD Chest X-Ray 02/08/17 0000 Signed Impressions: Service Date/Time: Wednesday, February 08, 2017 17:13 - CONCLUSION: A gastric tube tip is either near the fundus of the stomach or in the hiatus hernia. Side-port location cannot be determined on this film. Vahid Serrano MD Abdomen X-Ray 02/08/17 0000 Signed Impressions: Service Date/Time: Wednesday, February 08, 2017 17:58 - CONCLUSION: Gastrografin obscures the location of the NG tube. Given the pattern of the Gastrografin I suspect the NG tube is coiled within the lower thoracic esophagus or hiatal hernia. Vahid Fraser Jr., MD PE at Discharge GENERAL: This is a well-nourished, well-developed patient, in no apparent distress. CARDIOVASCULAR: Regular rate and regular rhythm without murmurs, gallops, or rubs. RESPIRATORY: Clear to auscultation. Breath sounds equal bilaterally. No wheezes , rales, or rhonchi. GASTROINTESTINAL: Abdomen soft, non-tender, nondistended. Normal, active bowel sounds MUSCULOSKELETAL: Extremities without clubbing, cyanosis, or edema. NEURO: Alert & Oriented x4 to person, place, time, situation. Moves all ext x4 Hospital Course - small bowel obstruction vs ileus- resolved. s/p EGD with gastritis and esophagitis- biopsy to be followed up. continue PPI- avoid NSAIDs. will advance the diet. d/w GI and cleared for discharge. previously d/w ( general surgery). -leukocytosis- likely stress induced-improved. will monitor -hypertension; better- resumed home meds- -dyslipidemia/ gout; resumed home meds upon discharge. -DVT prophylaxis with SCD's Pt Condition on Discharge: Good Discharge Disposition: Discharge Home Discharge Time: <= 30 minutes Discharge Instructions DIET: Follow Instructions for: Heart Healthy Diet Activities you can perform: Regular-No Restrictions Follow up Referrals: Gastroenterology PCP Follow-up New Medications: Pantoprazole (Protonix) 40 Mg Tab 40 MG PO DAILY Reflux Days 30 Ref 0 TAB Continued Medications: Allopurinol (Allopurinol) 300 Mg Tab 300 MG PO HS Gout #30 Ref 0 TAB Ramipril (Ramipril) 5 Mg Cap 5 MG PO HS #30 Ref 0 CAP Rosuvastatin (Rosuvastatin) 40 Mg Tab 40 MG PO HS Cholesterol Management #30 Ref 0 TAB Verapamil ER (Verapamil ER) 180 Mg Tab 180 MG PO HS TAB Vipin Caraballo MD Feb 11, 2017 11:05
[2017-02-11 12:00] VITALS: BP 143/83; PULSE 65; RESP 19; TEMP 97.1; O2SAT 94
== END 2017-02-11 14:23 | disposition home or self-care (01) | DRG 390 ==
LOC: PHED 14:30 → PHEDA 19:10 → N05B 02-09 00:45
PROVIDERS: ADMIT Internal Medicine; ATTEND Internal Medicine
PROC: 0DB68ZX Excision of Stomach, Via Natural or Artificial Opening Endoscopic, Diagnostic (ICD-10-PCS; 2017-02-10)
PROC: 0DB38ZX Excision of Lower Esophagus, Via Natural or Artificial Opening Endoscopic, Diagnostic (ICD-10-PCS; principal; 2017-02-10 11:50)
DX: K56.60 Unspecified intestinal obstruction (principal); I10 Essential (primary) hypertension; M10.9 Gout, unspecified; I25.10 Atherosclerotic heart disease of native coronary artery without angina pectoris; K29.70 Gastritis, unspecified, without bleeding; K21.0 Gastro-esophageal reflux disease with esophagitis; E78.5 Hyperlipidemia, unspecified; K44.9 Diaphragmatic hernia without obstruction or gangrene
CPT/HCPCS: 43753; 71010; 74000; 74176; 74245; 80048; 80053; 81001; 82270; 82948; 83605; 83690; 85025; 88305; 93005; 96361; 96374; 96375; C9113; J0360; J2270; J2405; J7030; Q9963